=== PATIENT | female | born 1985 | race Caucasian/White ===

== ENCOUNTER 2022-01-23 09:07 | Outpatient (CLI) | payer OTHER | END 2022-01-23 09:08 | disposition home or self-care (01) | LOC: CSHLAB 09:07 | PROVIDERS: ATTEND Obstetrics & Gynecology | DX: Z01.812 Encounter for preprocedural laboratory examination (principal); Z20.822 Contact with and (suspected) exposure to COVID-19 | CPT/HCPCS: 84703; 85027; 86850; 86900; 86901; 87811 ==

== ENCOUNTER 2022-01-23 11:30 | Inpatient (IN) | payer OTHER ==
[2022-01-23 10:00] LABS: Hemoglobin 10.7 g/dL (12.0-15.5); Mean Corpuscular HGB CONC 31.8 g/dL (32.0-36.0); Mean Corpuscular Hemoglobin 24.7 pg (27.0-33.0); Mean Corpuscular Volume 77.4 fl (81.6-98.3); Mean Platelet Volume 11.4 fl (7.4-10.4); Platelet Count 246 10x3/uL (150-450); RBC Distribution Width 16.4 % (11.5-14.5); Red Blood Cell (RBC) Count 4.34 10x6/uL (3.90-5.03)
[2022-01-23 10:07] LABS: BHCG - Serum Negative (NEGATIVE); Pregs Control Background? CLEAR/WHITE (CLR/WHITE); Pregs Control Bar Appear? YES (CONTROL BAR)
[2022-01-24 12:07] VITALS: BMI 43.4
[2022-01-26] MEDS ORDERED: Bupivacaine 0.25% HCL 30 ML VIAL ONE (07:19)
[2022-01-26] MEDS ORDERED: Methylene Blue 50 MG/10 ML AMPUL ONE (07:20)
[2022-01-26] MEDS ORDERED: EPINEPHrine 1 MG/ML AMP ONE (07:20)
[2022-01-26] MEDS ORDERED: Scopolamine 1.5 mg/72 hour Patch ONE (07:54)
[2022-01-26] MEDS ORDERED: Midazolam HCl 2 mg/2 ml Vial ONE (08:56)
[2022-01-26] MEDS ORDERED: CEFAZOLIN 2 GM VIAL ONE (08:59)
[2022-01-26] MEDS ORDERED: Lidocaine 2% PF 5 ML VIAL ONE (09:12)
[2022-01-26] MEDS ORDERED: Rocuronium Bromide 10 MG/ML (10ML VIAL) ONE (09:12)
[2022-01-26] MEDS ORDERED: PROPOFOL 20 ML ONE (09:12)
[2022-01-26] MEDS ORDERED: Fentanyl 100 MCG/2 ML VIAL ONE ×3 (09:12→12:36)
[2022-01-26] MEDS ORDERED: Dexamethasone 4 mg/ml Vial ONE (09:27)
[2022-01-26] MEDS ORDERED: Ondansetron PF 4 MG/2 ML Vial ONE (09:27)
[2022-01-26] MEDS ORDERED: Metoclopramide HCl 10 MG/2 ML VIAL ONE (09:27)
[2022-01-26] MEDS ORDERED: Thrombin 5000 UNITS/5 ML VIAL ONE (10:10)
[2022-01-26] MEDS ORDERED: Glycopyrrolate 0.2 MG/ML 5 ML SYRINGE ONE (11:58)
[2022-01-26] MEDS ORDERED: Ketorolac Tromethamine 30 MG/ML VIAL ONE (12:00)
[2022-01-26] MEDS ORDERED: Morphine 4 MG/ML VIAL SLOW IVP PRN ×2 (12:20→15:45)
[2022-01-26] MEDS ORDERED: Ondansetron PF 4 MG/2 ML Vial IVP PRN (12:20)
[2022-01-26] MEDS ORDERED: Zolpidem Tartrate 5 MG TAB PO PRN (12:20)
[2022-01-26] MEDS ORDERED: diphenhydrAMINE 25 MG CAP PO PRN (12:20)
[2022-01-26] MEDS ORDERED: Morphine 2 MG/ML VIAL SLOW IVP PRN (12:20)
[2022-01-26] MEDS ORDERED: Promethazine HCl 25 MG/ML VIAL IM PRN (12:20)
[2022-01-26] MEDS ORDERED: Bisacodyl 10 MG SUPP PR PRN (12:20)
[2022-01-26] MEDS ORDERED: HYDROcodone/Acetaminophen 10/325 mg Tablet PO PRN (12:20)
[2022-01-26] MEDS ORDERED: Simethicone Chewable 80 MG TAB PO PRN (12:20)
[2022-01-26] MEDS: Dextrose 5 %-0.45 % NaCl 1,000 ML IV SCH ×2 (16:09→20:31)
[2022-01-26] MEDS: Ketorolac Tromethamine 30 MG/ML VIAL IVP SCH ×2 (17:05→23:16)
[2022-01-26] MEDS: HYDROcodone/Acetaminophen 10/325 mg Tablet PO PRN ×2 (17:06→21:10)
[2022-01-27] MEDS: Ketorolac Tromethamine 30 MG/ML VIAL IVP SCH (05:16)
[2022-01-27 05:23] VITALS: BP 117/65; TEMP 98.9
[2022-01-27 05:28] LABS: Mean Corpuscular HGB CONC 30.8 g/dL (32.0-36.0); Mean Corpuscular Hemoglobin 24.9 pg (27.0-33.0); Mean Corpuscular Volume 80.7 fl (81.6-98.3); Mean Platelet Volume 11.5 fl (7.4-10.4); Platelet Count 235 10x3/uL (150-450); RBC Distribution Width 16.8 % (11.5-14.5); Red Blood Cell (RBC) Count 3.62 10x6/uL (3.90-5.03)
[2022-01-27] MEDS: Dextrose 5 %-0.45 % NaCl 1,000 ML IV SCH (05:30)
[2022-01-27] MEDS: HYDROcodone/Acetaminophen 10/325 mg Tablet PO PRN (07:54)
[2022-01-31] MEDS ORDERED: Ibuprofen 800 MG TAB PO SCH (22:00)
== END 2022-01-27 10:25 | disposition home or self-care (01) | DRG 743 ==
LOC: CSHERHOLD 01-26 07:14 → EDSTATUS 01-26 11:30 → CSHPP 01-26 14:26
PROVIDERS: ADMIT Obstetrics & Gynecology; ATTEND Obstetrics & Gynecology
PROC: 0UT94ZZ Resection of Uterus, Percutaneous Endoscopic Approach (ICD-10-PCS; principal; 2022-01-26)
PROC: 0UT74ZZ Resection of Bilateral Fallopian Tubes, Percutaneous Endoscopic Approach (ICD-10-PCS; 2022-01-26)
PROC: 0US94ZZ Reposition Uterus, Percutaneous Endoscopic Approach (ICD-10-PCS; 2022-01-26)
PROC: 8E0W4CZ Robotic Assisted Procedure of Trunk Region, Percutaneous Endoscopic Approach (ICD-10-PCS; 2022-01-26)
PROC: 0TJB8ZZ Inspection of Bladder, Via Natural or Artificial Opening Endoscopic (ICD-10-PCS; 2022-01-26)
DX: D25.9 Leiomyoma of uterus, unspecified (principal); N92.0 Excessive and frequent menstruation with regular cycle; N94.6 Dysmenorrhea, unspecified; Z20.822 Contact with and (suspected) exposure to COVID-19; Z98.84 Bariatric surgery status
CPT/HCPCS: 36415; 84703; 85027; 86850; 86900; 86901; 87811; 88307; J0171; J0690; J1100; J1885; J2001; J2250; J2270; J2405; J2704; J2765; J3010; J7042; Q9968; S0020